=== PATIENT | female | born 1990 | race Caucasian/White ===

== ENCOUNTER 2016-12-25 14:48 | Emergency (ER) | payer OTHER ==
[2016-12-25] MEDS ORDERED: OXYCODONE/APAP 5/325MG COMBO TABLET PO ONE (14:56)
--- NOTE | 2016-12-25 14:59 | PDOC ---
History of Present Illness - General History Source: Patient Exam Limitations: No Limitations - History of Present Illness Initial Comments: 12/25/16 15:00 The patient is a 26 year old female, with no significant past medical history who presents to the emergency department with left arm pain. The patient reports doing a handstand just prior to arrival when she fell and landed on her left arm, hearing a crack. She notes having numbness and tingling in her UEs. She notes having decreased ROM and strength in her arm secondary to pain. She denies recent fevers, chills, headache or dizziness. She denies recent nausea, vomit, diarrhea or constipation. Allergies: NKA Past surgical history: None reported. Social history: Nonsmoker. Denies EtOH use and recreational drug use. Primary Care Physician: N/A <Rodolfo Mace - Last Filed: 12/25/16 15:00> - History of Present Illness Initial Comments: 12/25/16 17:18 Physical exam: Well-developed well-nourished complaining of pain in the elbow cooperative Afebrile, vital signs normal The patient refuses to move the left elbow due to pain. However, there appears to be no appreciable swelling or deformity. There is point tenderness over the radial head. Pulses are full. No distal sensory or motor deficits. X-ray: Negative Impression: No significant fracture. There may be an occult fracture of the radial head. The patient was informed of this and orthopedic follow-up was recommended Plan: Rest sling and early mobilization. Orthopedic follow-up as directed. Patient fully ambulatory, pain adequately controlled, neurological exam intact and no distal numbness pain or tingling upon discharge with friend to follow-up as directed. <Gautam Casanova - Last Filed: 12/25/16 17:20> - General Chief Complaint: Pain Stated Complaint: lt arm pain Time Seen by Provider: 12/25/16 14:54 Past History <Rodolfo Mace - Last Filed: 12/25/16 15:00> <Gautam Casanova - Last Filed: 12/25/16 17:20> - Past Medical History Allergies/Adverse Reactions: Allergies Allergy/AdvReac Type Severity Reaction Status Date / Time No Known Allergies Allergy Verified 12/25/16 15:04 Home Medications: Ambulatory Orders Norgestimate-Ethinyl Estradiol [Sprintec 28 Day Tablet] 1 each PO DAILY Review of Systems - Review of Systems Able to Perform ROS?: Yes Comments:: 12/25/16 15:00 CONSTITUTIONAL: Absent: fever, no chills, no fatigue EYES: Absent: visual changes ENT: Absent: ear pain, no sore throat CARDIOVASCULAR: Absent: chest pain, no palpitations RESPIRATORY: Absent: cough, no SOB GI: Absent: abdominal pain, no nausea, no vomiting, no constipation, no diarrhea GENITOURINARY: Absent: dysuria, no frequency, no hematuria MUSKULOSKELETAL: +Left arm pain. Absent: back pain, no arthralgia, no myalgia SKIN: Absent: rash NEURO: Absent: headache <Rodolfo Mace - Last Filed: 12/25/16 15:00> Medical Decision Making - Medical Decision Making 12/25/16 15:34 Refuses to supply urine specimen for test. On control pills, no missed menses, aware that x-rays could be harmful to potential , but willing to sign a waiver to refuse prior testing. <Gautam Casanova - Last Filed: 12/25/16 17:20> *DC/Admit/Observation/Transfer - Attestations Scribe Attestion: 12/25/16 15:01 Documentation prepared by Rodolfo Mace, acting as medical billing instructor for Gautam Zapien MD. <Rodolfo Mace - Last Filed: 12/25/16 15:00> - Discharge Dispostion Admit: No <Gautam Casanova - Last Filed: 12/25/16 17:20> Diagnosis at time of Disposition: Elbow injury Qualifiers: Encounter type: initial encounter Laterality: left Qualified Code(s): S59.902A - Unspecified injury of left elbow, initial encounter - Discharge Dispostion Disposition: HOME Condition at time of disposition: Improved - Referrals Referrals: Seamus Lundberg MD [Staff Physician] - 3 days - Patient Instructions Printed Discharge Instructions: How to Use a Sling Additional Instructions: Rest, ice, Aleve 2 pills every 12 hours as needed for pain Use the sling for rest and elevation while active Although your x-ray did not show a fracture, occasionally a fracture of the radial head will not be visualized on initial x-ray. If this is the case, and it is a minor fracture of the radial head, it will usually heal on its own without a problem. Your pain should improve within the next few days and you should begin gentle stretching and range of motion exercises once the pain improves. We always recommend a follow-up examination, with further evaluation and treatment by an day habilitation specialist for an injury of this type. Please try to see an orthopedist for follow up as recommended. - Post Discharge Activity Work/School Note: Back to School
[2016-12-25] MEDS ORDERED: IBUPROFEN 400 MG TABLET (FP) PO ONE ×2 (15:06→15:15)
[2016-12-25] MEDS ORDERED: OXYCODONE/APAP 5/325MG COMBO TABLET ONE (15:06)
[2016-12-25 15:33] VITALS: BP 127/89; PULSE 78; TEMP 98.1; BMI 20.5
== END 2016-12-25 16:37 | disposition home or self-care (01) ==
LOC: FER 14:48
DX: S59.902A Unspecified injury of left elbow, initial encounter (principal); W18.39XA Other fall on same level, initial encounter; Y93.43 Activity, gymnastics; Y92.9 Unspecified place or not applicable
CPT/HCPCS: 73070-TC-LT; 99282-25

== ENCOUNTER 2018-01-08 16:07 | Emergency (ER) | payer SELFPAY ==
--- NOTE | 2018-01-08 16:21 | PDOC ---
History of Present Illness - General History Source: Patient, Old Records Exam Limitations: No Limitations - History of Present Illness Initial Comments: 01/08/18 17:05 The patient is a 27 year old female with no significant past medical history who presents to the emergency department with a right ring finger pain for 1 day. She works at an [employer] and reports that she was bitten by a stray cat yesterday at 7 pm and the pain has persisted since. She reports that the cat has no known vaccine history. She did not attempt to treat her symptoms at home. <Trung Rodriguez - Last Filed: 01/08/18 17:05> <Gautam Casanova - Last Filed: 01/08/18 18:06> - General Chief Complaint: Bite Stated Complaint: CAT BITE Time Seen by Provider: 01/08/18 16:11 Past History <Trung Rodriguez - Last Filed: 01/08/18 17:05> - Immunization History Immunization Up to Date: Yes - Suicide/Smoking/Psychosocial Hx Smoking History: Never smoked Hx Alcohol Use: Yes (OCCASIONAL) Drug/Substance Use Hx: No Substance Use Type: None <Gautam Casanova - Last Filed: 01/08/18 18:06> - Past Medical History Allergies/Adverse Reactions: Allergies Allergy/AdvReac Type Severity Reaction Status Date / Time No Known Allergies Allergy Verified 01/08/18 16:22 Home Medications: Ambulatory Orders Norgestimate-Ethinyl Estradiol [Sprintec 28 Day Tablet] 1 each PO DAILY Review of Systems - Review of Systems Able to Perform ROS?: Yes Comments:: 01/08/18 17:06 CONSTITUTIONAL: Absent: fever, no chills, no fatigue EYES: Absent: visual changes ENT: Absent: ear pain, no sore throat CARDIOVASCULAR: Absent: chest pain, no palpitations RESPIRATORY: Absent: cough, no SOB GI: Absent: abdominal pain, no nausea, no vomiting, no constipation, no diarrhea GENITOURINARY: Absent: dysuria, no frequency, no hematuria MUSCULOSKELETAL: (+) Right ring finger pain Absent: back pain SKIN: Absent: rash <Trung Rodriguez - Last Filed: 01/08/18 17:05> *Physical Exam - Vital Signs Last Vital Signs Temp Pulse Resp BP Pulse Ox 97.9 F 64 18 113/69 100 01/08/18 16:08 01/08/18 16:08 01/08/18 16:08 01/08/18 16:08 01/08/18 16:08 - Physical Exam Comments: 01/08/18 17:06 GENERAL: Well-appearing, well-nourished. No apparent distress. HEENT: Normocephalic, atraumatic. PERRL, EOM intact. CARDIOVASCULAR: Normal S1, S2. Regular rate and rhythm. PULMONARY: Clear to auscultation bilaterally. ABDOMEN: Soft, non-distended, non-tender. EXTREMITIES: (+) 1 mm superficial puncture to 4th digit on right hand. Normal ROM in all four extremities. No gross deformities. SKIN: Warm, dry. No rash NEUROLOGICAL: No focal neurological deficits. <Trung Rodriguez - Last Filed: 01/08/18 17:05> Medical Decision Making - Medical Decision Making 01/08/18 18:03 Physical exam: Alert and oriented well-developed well-nourished no acute distress cheerful and cooperative Afebrile vital signs normal Examination of the right fourth finger reveals approximately 1 mm superficial puncture of the distal pulp. Not involving the joint. No surrounding erythema, swelling, tenderness, or drainage. Full range of motion of the joint without pain. No palpable skin irregularity or palpable foreign body Impression: Bitten by impounded cat at her work site. Thoroughly scrubbed 15 minutes at the work site. The cat has been confined for 4 days. It was a stray. It does not appear to be ill. The cat is still in custody and available for observation. Plan: An x-ray for foreign body and antibiotics are recommended. The frequency of infection from cat bites as well as the significant disability that can occur from a hand infection were discussed with the patient at length, but she could not be convinced to consent to an x-ray or the administration of antibiotics. The patient refuses both. She does not fit the criteria for immediate post exposure rabies prophylaxis. Form was faxed to the health department and she was instructed to contact them tomorrow morning for further recommendation. If there is any problem with this contact, she is instructed to call the emergency room or return for follow-up. <Gautam Casanova - Last Filed: 01/08/18 18:06> *DC/Admit/Observation/Transfer - Attestations Scribe Attestion: 01/08/18 17:06 Documentation prepared by Trung Rodriguez, acting as chief medical technologist for Gautam Casanova DO. <Trung Rodriguez - Last Filed: 01/08/18 17:05> - Discharge Dispostion Admit: No <Gautam Casanova - Last Filed: 01/08/18 18:06> Diagnosis at time of Disposition: Cat bite Qualifiers: Encounter type: initial encounter Qualified Code(s): W55.01XA - Bitten by cat, initial encounter - Discharge Dispostion Disposition: HOME Condition at time of disposition: Stable - Referrals Referrals: Naren Hernandez MD [Staff Physician] - 2 Days - Patient Instructions Printed Discharge Instructions: How to Care for a Domestic Animal Bite, How to Care for a Wild Animal Bite Additional Instructions: Rest and elevate the hand and arm for 48 hours to minimize the risk of infection See primary physician immediately if sign of infection develops, including increased pain, redness, swelling, or drainage. Cat bites are notorious for becoming infected, especially on the hand. Hand infections can lead to significant serious future disability if not treated An x-ray of the finger as well as preventative antibiotics have been recommended today. Contact health department tomorrow regarding further analysis of the animal and possible treatment. If you cannot contact the health department, return to the ER or phone and we will attempt to interview or clarify the situation in an expedient manner.
[2018-01-08 16:29] VITALS: BP 113/69; PULSE 64; TEMP 97.9; BMI 22.0
== END 2018-01-08 17:42 | disposition home or self-care (01) ==
LOC: FER 16:07
DX: S61.254A Open bite of right ring finger without damage to nail, initial encounter (principal); W55.01XA Bitten by cat, initial encounter; Y93.89 Activity, other specified; Y92.531 Health care provider office as the place of occurrence of the external cause; Y99.0 Civilian activity done for income or pay
CPT/HCPCS: 99281-25